=== PATIENT | female | born 1950 | race Caucasian/White ===

== ENCOUNTER 2017-05-23 16:51 | Emergency (ER) | payer OTHER ==
[~2017-05-23] VITALS: Ht 157.5 cm; Wt 59.0 kg
[~2017-05-23 16:51] MED LIST: ACET500T98; IBUP100T4
[2017-05-23 16:55] VITALS: Ht 157.5 cm; Wt 59.0 kg
[2017-05-23] MEDS ORDERED: ACETAMINOPHEN 500 MG TAB PO STA (17:08)
[2017-05-23] MEDS ORDERED: DIPHTH/TET/ACEL PERTUSS (ADULT) 0.5 ML VIAL IM* ONE (17:30)
[2017-05-23] MEDS ORDERED: ACET500C5 PO (17:40)
[2017-05-23] MEDS ORDERED: AMOX1TAB10 PO (17:40)
--- NOTE | 2017-05-23 17:43 | ERD ---
ER Documentation Chief Complaint Date/Time DATE: 05/23/17 TIME: 17:41 Chief Complaint DOG BITE ON BACK 1HR AGO HPI 66-year-old female was bit on her back by dog while waiting for outside of her mother's apartment. It was a neighbor's dog. Her tetanus is not up-to-date. She has no active bleeding, additional complaints. ROS All systems reviewed and are negative except as per history of present illness. Medications Home Meds Active Scripts Acetaminophen* (Tylophen*) 500 Mg Capsule, 1 CAP PO Q6H Y for PAIN AND OR ELEVATED TEMP, #15 CAP Prov:DOLLY VERGARA MD 05/23/17 Amoxicillin/Potassium Clav (Amox-Clav 875-125 mg Tablet) 875-125 mg Tab, 1 TAB PO BID for 7 Days, #14 TAB Prov:DOLLY VERGARA MD 05/23/17 Reported Medications Ibuprofen (Advil) 100 Mg Tablet 06/07/10 Acetaminophen (Tylenol) 500 Mg Tab 06/07/10 Allergies Allergies: Coded Allergies: No Known Drug Allergies (Verified Allergy, Mild, 08/20/14) PMhx/Soc History of Surgery: Yes (Hernia Repair) Anesthesia Reaction: No Hx Neurological Disorder: No Hx Respiratory Disorders: No Hx Cardiac Disorders: No Hx Psychiatric Problems: No Hx Miscellaneous Medical Probl: No Hx Alcohol Use: No Hx Substance Use: No Hx Tobacco Use: No Smoking Status: Never smoker Physical Exam Vitals Vital Signs Date Time Temp Pulse Resp B/P Pulse Ox O2 Delivery O2 Flow Rate FiO2 05/23/17 16:55 97.8 74 20 158/87 99 Physical Exam Const: [], [id number]. Head: Atraumatic Eyes: Normal Conjunctiva ENT: Normal External Ears, Nose and Mouth. Neck: Full range of motion..~ No meningismus. Resp: Clear to auscultation bilaterally Cardio: Regular rate and rhythm, no murmurs Abd: Soft, non tender, non distended. Normal bowel sounds Skin: No petechiae or rashes. There is approximately 3 cm circular abrasion consistent with a small dog bite. There is minimal penetration through the dermis without active bleeding, discharge or fluctuance. Back: No midline or flank tenderness Ext: No cyanosis, or edema Neur: Awake and alert Psych: Normal Mood and Affect Results 24 hrs Current Medications Medications (Trade) Dose Ordered Sig/Luis Fernando Route PRN Reason Start Time Stop Time Status Last Admin Dose Admin Acetaminophen (Tylenol Tab) 500 mg ONCE STAT PO 05/23/17 17:08 05/23/17 17:09 DC 05/23/17 17:16 Diphtheria/ Tetanus/Acell Pertussis (Adacel) 0.5 ml ONCE ONCE IM* 05/23/17 17:30 05/23/17 17:31 DC 05/23/17 17:17 Procedures/MDM Patient presents with a superficial dog bite to her back where there is no signs or symptoms of infection, active bleeding, fracture, foreign body. Patient was given a tetanus booster and Tylenol for pain. Patient was treated with Augmentin and further wound care instructions for 2 day wound check for worsening redness, fevers, new worsening symptoms. Patient not at risk for rabies given demographic area and household pet. Departure Diagnosis: Primary Impression: Dog bite Encounter type: initial encounter Qualified Code: W54.0XXA - Dog bite, initial encounter Condition: Stable Patient Instructions: Dog Bite Additional Instructions: CHEQUE EN 2 NANCE PARA MAS FERNANDEZ , FITARA, NUSUNNYE SIMPTOMAS. DOLLY VERGARA MD May 23, 2017 17:43
== END 2017-05-23 18:19 | disposition home or self-care (01) ==
LOC: FTE 16:51
DX: S31.050A Open bite of lower back and pelvis without penetration into retroperitoneum, initial encounter (principal); W54.0XXA Bitten by dog, initial encounter; Y92.9 Unspecified place or not applicable; Z23 Encounter for immunization
CPT/HCPCS: 90471; 90715; Z7502; Z7610

== ENCOUNTER 2017-05-26 07:59 | Emergency (ER) | payer MEDICARE, OTHER ==
[~2017-05-26] VITALS: Ht 144.8 cm; Wt 59.0 kg
[~2017-05-26 07:59] MED LIST changes: +ACET500C5 PO; +AMOX1TAB10 PO
[2017-05-26 08:01] VITALS: Ht 144.8 cm; Wt 59.0 kg
--- NOTE | 2017-05-26 08:21 | ERD ---
ER Documentation Chief Complaint Date/Time DATE: 05/26/17 TIME: 08:17 Chief Complaint 2nd day wound check for dog bite on back HPI Patient is a 66-year-old female who presents for wound recheck. Patient sustained bite betsy to her back from a dog. Patient states it was the neighbor' s dog. Patient did receive her tetanus vaccination last visit. Patient denies any fevers, chills, swelling, warmth, bleeding or discharge from the affected site. Patient has been taking antibiotics as prescribed. Patient has no concerns or complaints at this time. ROS All systems reviewed and are negative except as per history of present illness. Medications Home Meds Active Scripts Acetaminophen* (Tylophen*) 500 Mg Capsule, 1 CAP PO Q6H Y for PAIN AND OR ELEVATED TEMP, #15 CAP Prov:DOLLY VERGARA MD 05/23/17 Amoxicillin/Potassium Clav (Amox-Clav 875-125 mg Tablet) 875-125 mg Tab, 1 TAB PO BID for 7 Days, #14 TAB Prov:DOLLY VERGARA MD 05/23/17 Reported Medications Ibuprofen (Advil) 100 Mg Tablet 06/07/10 Acetaminophen (Tylenol) 500 Mg Tab 06/07/10 Allergies Allergies: Coded Allergies: No Known Drug Allergies (Verified Allergy, Mild, 05/26/17) PMhx/Soc History of Surgery: Yes (Hernia Repair) Anesthesia Reaction: No Hx Neurological Disorder: No Hx Respiratory Disorders: No Hx Cardiac Disorders: No Hx Psychiatric Problems: No Hx Miscellaneous Medical Probl: No Hx Alcohol Use: No Hx Substance Use: No Hx Tobacco Use: No FmHx Family History: No diabetes Physical Exam Vitals Vital Signs Date Time Temp Pulse Resp B/P Pulse Ox O2 Delivery O2 Flow Rate FiO2 05/26/17 08:01 98.4 60 18 141/70 99 Physical Exam GENERAL: Well-developed, well-nourished female. Appears in no acute distress. HEAD: Normocephalic, atraumatic. EYES: Pupils are equally reactive bilaterally. EOMs grossly intact. No conjunctival erythema. ENT: Moist mucous membranes. No uvula deviation. No kissing tonsils. NECK: Supple. No meningismus. Normal range of motion of the neck. LUNG: Clear to auscultation bilaterally. No rhonchi, wheezing, rales or coarse breath sounds. HEART: Regular rate and rhythm. No murmurs, rubs or gallops. BACK: No midline tenderness. 3 cm circular abrasion consistent with a small dog bite on patient's mid upper back. Slightly erythematous. no discharge, bleeding or swelling noted. No fluid collection or fluctuance noted. No wound dehiscence. EXTREMITIES: Equal pulses bilaterally. No peripheral clubbing, cyanosis or edema. No unilateral leg swelling. NEUROLOGIC: Alert and oriented. Moving all four extremities without any difficulty. Normal speech. Steady gait. SKIN: Normal color. Warm and dry. Procedures/MDM MEDICAL DECISION MAKING: This is a 66-year-old female who presents for a wound check after being bit by dog 2 days ago. Patient has a superficial dog bite to her upper back.. Vital signs were reviewed. Patient is afebrile. The wound appears to be healing well with no concerns of acute infection at this time. Physical exam findings showed no evidence of warmth, swelling, active bleeding or fluctuance to the affected area. No wound drainage or wound dehiscence noted. Tetanus is up-to- date. Post-procedural wound care was discussed with the patient. PRESCRIPTIONS: Continue to take antibiotics as prescribed. Complete full course. DISCHARGE: At this time, the patient is stable for discharge and outpatient management. Post-procedural wound care was discussed with the patient. I have instructed the patient to promptly return to the ER for any new or worsening symptoms including increasing pain, fever, warmth, redness or swelling. The patient and/ or family expressed understanding of and agreement with this plan. All questions were answered. Home care instructions were provided. Departure Diagnosis: Primary Impression: Encounter for wound re-check Condition: Stable Patient Instructions: Wound Check, Lac F/U (No Infection) Referrals: KRYS WHEELER MD (PCP) Additional Instructions: Call your primary care doctor TOMORROW for an appointment during the next 1-2 days.See the doctor sooner or return here if your condition worsens before your appointment time. Continue take antibiotics as prescribed. Return for any new or worsening symptoms including fevers, chills, drainage, discharge or bleeding from the affected site. JANET GOMEZ PA-C May 26, 2017 08:21
== END 2017-05-26 09:16 | disposition home or self-care (01) ==
LOC: FTE 07:59
DX: Z48.01 Encounter for change or removal of surgical wound dressing (principal)
CPT/HCPCS: 99281

== ENCOUNTER 2017-10-18 21:18 | Emergency (ER) | payer MEDICARE, OTHER ==
[~2017-10-18] VITALS: Ht 154.9 cm; Wt 52.2 kg
[2017-10-18 21:21] VITALS: Ht 154.9 cm; Wt 52.2 kg
[2017-10-18 23:21] LABS: URINE BLOOD (Dip) POC Trace-intact (NEGATIVE)
[2017-10-18] MEDS ORDERED: NITR-58 PO (23:36)
--- NOTE | 2017-10-19 01:10 | ERD ---
ER Documentation Chief Complaint Chief Complaint pt claims something swollen inside her vagina for couple of weeks already HPI 66-year-old female complaining of a ball coming out of her vagina. Patient states she has occasional dysuria. Denies any fevers. Has noticed this bulge coming out of her vagina for multiple weeks now has not seen a physician prior to this. She states that sometimes the mass is larger than other times. ROS All systems reviewed and are negative except as per history of present illness. Medications Home Meds Active Scripts Nitrofurantoin Monohyd Macrocr* (Macrobid*) 100 Mg Capsr, 100 MG PO BID for 14 Days, CAP Prov:FREDERICK BAIRD PA-C 10/18/17 Acetaminophen* (Tylophen*) 500 Mg Capsule, 1 CAP PO Q6H Y for PAIN AND OR ELEVATED TEMP, #15 CAP Prov:DOLLY VERGARA MD 05/23/17 Amoxicillin/Potassium Clav (Amox-Clav 875-125 mg Tablet) 875-125 mg Tab, 1 TAB PO BID for 7 Days, #14 TAB Prov:DOLLY VERGARA MD 05/23/17 Reported Medications Ibuprofen (Advil) 100 Mg Tablet 06/07/10 Acetaminophen (Tylenol) 500 Mg Tab 06/07/10 Allergies Allergies: Coded Allergies: No Known Drug Allergies (Verified Allergy, Mild, 05/26/17) PMhx/Soc Medical and Surgical Hx: pt denies Surgical Hx History of Surgery: Yes (,Tubal ligation) Anesthesia Reaction: No Hx Neurological Disorder: No Hx Respiratory Disorders: No Hx Cardiac Disorders: No Hx Psychiatric Problems: No Hx Miscellaneous Medical Probl: No Hx Alcohol Use: No Hx Substance Use: No Hx Tobacco Use: No Smoking Status: Never smoker Physical Exam Vitals Vital Signs Date Time Temp Pulse Resp B/P Pulse Ox O2 Delivery O2 Flow Rate FiO2 10/18/17 21:21 98.1 84 20 168/81 98 Physical Exam GENERAL: The patient is well-appearing, well-nourished, in no acute distress CHEST: Clear to auscultation bilaterally. There are no rales, wheezes or rhonchi. HEART: Regular rate and rhythm. No murmurs, clicks, rubs or gallops. No S3 or S4. ABDOMEN:Soft, nontender and nondistended. Good bowel sounds. No rebound or guarding. No gross peritonitis. No gross organomegaly or masses. No Sin sign or McBurney point tenderness. : Prolapse of the uterine wall. No swelling. No tenderness to palpation. No masses per Results 24 hrs Laboratory Tests Test 10/18/17 23:19 Bedside Urine pH (LAB) 7.0 Bedside Urine Protein (LAB) Negative Bedside Urine Glucose (UA) Negative Bedside Urine Ketones (LAB) Negative Bedside Urine Blood Trace-intact Bedside Urine Nitrite (LAB) Negative Bedside Urine Leukocyte Esterase (L 1+ Procedures/MDM MDM: 66-year-old female complaining of a mass within her vaginal wall. It appears that she is having a uterine prolapse. I have low suspicion for infectious etiology. Patient's urine appears to be infected and I will treat with antibiotics. I have low suspicion for abscess formation and I do not feel that an incision and drainage is indicated at today's visit. Patient is discharged with strict ER precautions and recommended to follow-up with primary care within 1 to days for close evaluation. Patient is told if symptoms worsen to return the ER immediately. All questions answered at discharge. Departure Diagnosis: Primary Impression: Uterine prolapse Additional Impression: Complicated abscess Condition: Stable Patient Instructions: Pelvic Organ Prolapse: Surgery for Uterine Prolapse, Understanding Urinary Tract Infections (UTIs) Referrals: [facility] [id number] [facility] [address] [place], [place] [phone] OFFICE FAX JOHN LEVY [address] [place], [place] [id number] [facility] [address] [place], [place] [phone] DAFNE DANIELS [address] [facility], [address] [id number] LISA JOHNSON [address] [place], [place] [phone] [facility] [address] [place], [place] [id number] [address] [facility] [id number] - NICOLE CALVILLO [address] [facility] [id number] MOELLER, [place] [address] [facility]. [address], [facility] [address] [address], [facility] [address] [place] [address] Additional Instructions: FOLLOW UP WITH YOUR PRIMARY CARE PHYSICIAN TOMORROW.Return to this facility if you are not improving as expected. FREDERICK BAIRD PA-C Oct 19, 2017 01:10
== END 2017-10-19 00:04 | disposition home or self-care (01) ==
LOC: FTE 21:18
DX: N81.4 Uterovaginal prolapse, unspecified (principal); N76.4 Abscess of vulva
CPT/HCPCS: 81003; 99284

== ENCOUNTER 2018-04-24 16:20 | Emergency (ER) | END 2018-04-24 20:00 | disposition home or self-care (01) ==

== ENCOUNTER 2019-03-01 21:54 | Emergency (ER) | payer MEDICARE, OTHER ==
[~2019-03-01] VITALS: Ht 152.4 cm; Wt 59.7 kg
[~2019-03-01 21:54] MED LIST changes: +CETI10CA PO; +FLUT9.9S NASAL; +IBUP-1561 PO; +NITR-58 PO
[2019-03-01 22:08] VITALS: Ht 152.4 cm; Wt 59.7 kg
--- NOTE | 2019-03-01 22:25 | ERD ---
ER Documentation Chief Complaint Chief Complaint C/O CHEST TIGHTNESS HPI The patient is a 68-year-old female, presenting to the ER because of chest tightness for the last 3 days, intermittent cough. She has similar symptoms previously. She denies fever, neck pain, chest pain, abdominal pain, vomiting, dysuria, diarrhea. She does not smoke nor drink Medical history: Asthma Past surgical history: , tubal ligation, umbilical herniorrhaphy ROS All systems reviewed and are negative except as per history of present illness. Medications Home Meds Active Scripts Salmeterol Xinaf-Fluticasone* (Advair HFA*) 115/21 Aerosol Inhaler, 2 INH IH BID, #1 INHALER Prov:LIAM MCKEON MD 03/02/19 Albuterol Sulfate* (Proair HFA*) 8.5 Gm Hfa.aer.ad, 2 PUFF INH Q4, #1 INHALER Prov:LIAM MCKEON MD 03/02/19 Fluticasone Propionate (Flonase Allergy Relief) 9.9 Ml [place].susp, 1 SPRAY NASAL DAILY, #1 BOTTLE TO EACH NOSTRIL Prov:DOLLY VERGARA MD 04/24/18 Cetirizine Hcl* (Zyrtec*) 10 Mg Capsule, 10 MG PO DAILY, #30 TAB.CHEW Prov:DOLLY VERGARA MD 04/24/18 Ibuprofen* (Motrin*) 400 Mg Tab, 400 MG PO Q6, #20 TAB Prov:DOLLY VERGARA MD 04/24/18 Nitrofurantoin Monohyd Macrocr* (Macrobid*) 100 Mg Capsr, 100 MG PO BID for 14 Days, CAP Prov:FREDERICK BAIRD PA-C 10/18/17 Acetaminophen* (Tylophen*) 500 Mg Capsule, 1 CAP PO Q6H PRN for PAIN AND OR ELEVATED TEMP, #15 CAP Prov:DOLLY VERGARA MD 05/23/17 Amoxicillin/Potassium Clav (Amox-Clav 875-125 mg Tablet) 875-125 mg Tab, 1 TAB PO BID for 7 Days, #14 TAB Prov:DOLLY VERGARA MD 05/23/17 Reported Medications Ibuprofen (Advil) 100 Mg Tablet 06/07/10 Acetaminophen (Tylenol) 500 Mg Tab 06/07/10 Allergies Allergies: Coded Allergies: No Known Drug Allergies (Verified Allergy, Mild, 04/24/18) PMhx/Soc History of Surgery: Yes (,Tubal ligation) Anesthesia Reaction: No Hx Neurological Disorder: No Hx Respiratory Disorders: No Hx Cardiac Disorders: No Hx Psychiatric Problems: No Hx Miscellaneous Medical Probl: No Hx Alcohol Use: No Hx Substance Use: No Hx Tobacco Use: No Physical Exam Vitals Vital Signs Date Temp Pulse Resp B/P (MAP) Pulse Ox O2 O2 Flow FiO2 Time Delivery Rate 03/02/19 66 19 123/78 99 Room Air 01:30 (93) 03/02/19 67 16 133/74 99 Room Air 00:17 (93) 03/01/19 69 19 98 21 23:12 03/01/19 98.7 77 19 176/96 98 Room Air 22:50 (122) 03/01/19 98.7 74 19 176/96 98 22:08 (122) Physical Exam Const: No acute distress. Head: Atraumatic. Eyes: Normal Conjunctiva. ENT: Normal External Ears, Nose and Mouth. Bilateral tympanic membranes and oropharynx are within normal limit Neck: Full range of motion. No meningismus. Resp: Mild bilateral expiratory wheezes Cardio: Regular rate and rhythm. Abd: Soft, non distended, normal bowel sounds, non tender. Skin: No petechiae or rashes. Back: No midline or flank tenderness. Ext: No cyanosis, or edema. Neur: Awake and alert. No focal deficit Psych: Normal Mood and Affect. Result Diagram: 03/01/196 03/01/192255 Results 24 hrs Laboratory Tests Test 03/01/19 22:56 03/01/19 23:54 White Blood Count 7.4 10^3/ul Red Blood Count 4.63 10^6/ul Hemoglobin 12.5 g/dl Hematocrit 39.3 % Mean Corpuscular Volume 84.9 fl Mean Corpuscular Hemoglobin 27.0 pg Mean Corpuscular Hemoglobin Concent 31.8 g/dl Red Cell Distribution Width 12.8 % Platelet Count 339 10^3/UL Mean Platelet Volume 9.2 fl Immature Granulocytes % 0.300 % Neutrophils % 54.4 % Lymphocytes % 31.8 % Monocytes % 7.7 % Eosinophils % 5.1 % Basophils % 0.7 % Nucleated Red Blood Cells % 0.0 /100WBC Immature Granulocytes # 0.020 10^3/ul Neutrophils # 4.0 10^3/ul Lymphocytes # 2.4 10^3/ul Monocytes # 0.6 10^3/ul Eosinophils # 0.4 10^3/ul Basophils # 0.1 10^3/ul Nucleated Red Blood Cells # 0.0 10^3/ul Prothrombin Time 12.8 Sec Prothrombin Time Ratio 1.0 INR International Normalized Ratio 0.95 Activated Partial Thromboplast Time 28.6 Sec Sodium Level 142 mmol/L Potassium Level 3.7 mmol/L Chloride Level 106 mmol/L Carbon Dioxide Level 27 mmol/L Anion Gap 9 Blood Urea Nitrogen 16 mg/dl Creatinine 0.78 mg/dl Est Glomerular Filtrat Rate mL/min > 60 mL/min Glucose Level 111 mg/dl Calcium Level 9.3 mg/dl Troponin I < 0.012 ng/ml Bedside Urine pH (LAB) 6.0 Bedside Urine Protein (LAB) Negative Bedside Urine Glucose (UA) Negative Bedside Urine Ketones (LAB) Negative Bedside Urine Blood 1+ Bedside Urine Nitrite (LAB) Negative Bedside Urine Leukocyte Esterase (L Trace Current Medications Medications Dose Sig/Luis Fernando Start Time Status Last (Trade) Ordered Route PRN Stop Time Admin Dose Reason Admin Ipratropium 0.5 mg ONCE STAT 03/01/19 DC 03/01/19 [place] NEB 22:50 23:12 (Atrovent 03/01/19 22:51 0.02% (Neb)) 1.25 mg ONCE STAT 03/01/19 DC 03/01/19 Levalbuterol INH 22:50 23:12 (Xopenex 03/01/19 22:51 Neb) Procedures/[place] [id number] Radiology Main Line: [phone] DIAGNOSTIC IMAGING REPORT Patient: TRENTON OJEDA : 1950 Age: 68 Sex: F MR #: [id number] DOS: 03/01/19 2225 Ordering MD: LIAM MCKEON MD Location: E/R Room/Bed: PROCEDURE: XR Chest. CLINICAL INDICATION: Shortness of breath TECHNIQUE: Single portable view of the chest was obtained COMPARISON: No priors for comparison FINDINGS: The trachea is midline. The cardiac silhouette and pulmonary vascularity are within normal limits. The lungs are clear. The costophrenic angles are sharp. There is mild atherosclerotic calcification of the aortic knob. IMPRESSION: 1. No evidence of acute cardiopulmonary disease. 2. Atherosclerotic disease of the aorta. RPTAT: AAPP Physician Isabela Date Time Electronically viewed and signed by Marisela Melgar Physician on 03/01/2019 22:54 JL/ CC: LIAM MCKEON MD [id number] EKG: Read by emergency physician Rate/Rhythm: Normal Sinus Rhythm 85 beats per min QRS, ST, T-waves: No ST elevation, no T wave inversion, septal q's Impression: Abnormal EKG MEDICAL MAKING DECISION: The patient is a 68-year-old female, presenting with acute asthma, was treated with Xopenex 1.25 mg and Atrovent 0.5 mg for wheezing with good response, is stable for outpatient follow-up The differential diagnoses considered include but are not limited to asthma, COPD, pneumonia, pulmonary embolus, pleural effusion, congestive heart failure. Departure Diagnosis: Primary Impression: Asthma Condition: Good Comments She was discharged with albuterol and an Advair I discussed the findings with the patient. I advised the patient to follow-up with the primary physician in about 2-3 days, sooner if needed and return if any concern. Disclaimer: Inadvertent spelling and grammatical errors are likely due to EHR/dictation software use and do not reflect on the overall quality of patient care. Also, please note that the electronic time recorded on this note does not necessarily reflect the actual time of the patient encounter. LIAM MCKEON MD Mar 01, 2019 22:25
[2019-03-01] MEDS ORDERED: IPRATROPIUM (NEB) 0.5 MG/2.5 ML AMP NEB STA (22:50)
[2019-03-01] MEDS ORDERED: LEVALBUTEROL (NEB) 1.25 MG/0.5 ML AMP INH STA (22:50)
[2019-03-02] MEDS ORDERED: ALBU8.5H8 INH (00:58)
[2019-03-02] MEDS ORDERED: FLUT12HF2 IH (00:59)
[2019-03-02 01:30] VITALS: BP 123/78; PULSE 66; RESP 19
== END 2019-03-02 01:40 | disposition home or self-care (01) ==
LOC: E/R 21:54
DX: J45.901 Unspecified asthma with (acute) exacerbation (principal); R07.89 Other chest pain
CPT/HCPCS: 36415; 71045; 80048; 81003; 84484; 85025; 85610; 85730; 93005; 94664